=== PATIENT | male | born 1995 | race Two or more races ===

== ENCOUNTER 2025-05-06 10:34 | Inpatient (IN) | payer BC ==
[~2025-05-06] VITALS: Ht 193 cm; Wt 102.1 kg
[2025-05-06 10:42] VITALS: O2SAT 99
[2025-05-06] MEDS: KETOROLAC 30MG/ML VIAL IV ONE (11:08)
[2025-05-06] MEDS: OXYCODONE HCL 5MG TABLET PO ONE (12:50)
[2025-05-06 14:26] LABS: BASOPHILS % 0.1 % (0.0-2.0); EOSINOPHILS % 0.1 % (0.0-5.0); HEMATOCRIT. 41.5 % (42.0-52.0); HEMOGLOBIN. 13.6 g/dL (14.0-18.0); LYMPHOCYTES % 10.8 % (20.0-50.0); MEAN PLATELET VOLUME 8.8 fl (7.4-10.4); MONOCYTES % 4.2 % (2.0-8.0); NEUTROPHILS % 84.8 % (40.0-76.0); PLATELET 249 x1000/uL (130-400); RED BLOOD CELL COUNT 4.94 mill/uL (4.7-6.1); RED CELL DISTRIBUTION WIDTH 13.0 % (11.6-14.6)
[2025-05-06 14:49] LABS: CREATININE 1.1 mg/dL (0.6-1.3); UREA NITROGEN BLOOD 23 mg/dL (9-23)
[2025-05-06] MEDS ORDERED: ONDANSETRON HCL 4MG/2ML INJ IV PRN ×2 (15:30→20:15)
[2025-05-06] MEDS ORDERED: IPRATROPIUM/ALBUTEROL 0.5-3(2.5)MG/3ML NEB HHN PRN (15:30)
[2025-05-06] MEDS ORDERED: ACETAMINOPHEN 325MG TABLET PO PRN (15:30)
[2025-05-06] MEDS ORDERED: CLONIDINE 0.1MG TABLET PO PRN (15:30)
[2025-05-06 16:52] VITALS: BP 124/69; PULSE 61; RESP 19; TEMP 36.5848
[2025-05-06] MEDS ORDERED: FENTANYL CITRATE/PF 50MCG/ML 5ML VIAL ONE (18:25)
[2025-05-06] MEDS ORDERED: MIDAZOLAM HCL 2 MG/2 ML VIAL ONE (18:25)
[2025-05-06] MEDS ORDERED: PROPOFOL 200MG/20ML VIAL IV ONE (18:26)
[2025-05-06] MEDS ORDERED: CEFAZOLIN SODIUM 1000MG/VIAL ONE (18:42)
[2025-05-06] MEDS ORDERED: METOCLOPRAMIDE HCL 10MG/2ML VIAL ONE (18:44)
[2025-05-06] MEDS ORDERED: ONDANSETRON HCL 4MG/2ML INJ ONE (18:44)
[2025-05-06] MEDS ORDERED: EPHEDRINE SULFATE 50MG/ML VIAL ONE (19:00)
[2025-05-06] MEDS ORDERED: FENTANYL CITRATE/PF 50MCG/ML 2ML VIAL ONE ×2 (19:23→19:33)
[2025-05-06] MEDS ORDERED: CEFAZOLIN 1000MG PREMIX 50 ML IV SCH (20:00)
[2025-05-06] MEDS: HYDROMORPHONE HCL/PF 1MG/ML INJ IV PRN (20:45)
[2025-05-06] MEDS: ASPIRIN 325MG EC TABLET PO SCH (21:51)
[2025-05-06] MEDS: SENNOSIDES/DOCUSATE SOD 8.6/50MG TABLET PO SCH (21:51)
[2025-05-06] MEDS: CITALOPRAM HYDROBROMIDE 10MG TABLET PO SCH (23:13)
[2025-05-07] VITALS: BP 116/66; PULSE 67; RESP 17; TEMP 37.1; O2SAT 96
[2025-05-07] MEDS: CEFAZOLIN 1000MG PREMIX 50 ML IV SCH ×2 (01:53→18:17)
[2025-05-07 04:00] VITALS: BP 109/63; PULSE 52; RESP 17; TEMP 36.8; O2SAT 97
[2025-05-07] MEDS: ACETAMINOPHEN 325MG TABLET PO PRN (04:18)
[2025-05-07] MEDS: TRAMADOL 50MG TABLET PO PRN (05:10)
[2025-05-07 08:00] VITALS: BP 112/61; PULSE 59; RESP 18; TEMP 36.6; O2SAT 100
[2025-05-07] MEDS ORDERED: DEXTROSE 50% WATER 50ML SYRINGE IV PRN (08:00)
[2025-05-07 08:48] LABS: BASOPHILS % 0.1 % (0.0-2.0); EOSINOPHILS % 0.7 % (0.0-5.0); HEMATOCRIT. 36.6 % (42.0-52.0); HEMOGLOBIN. 12.1 g/dL (14.0-18.0); LYMPHOCYTES % 18.5 % (20.0-50.0); MEAN PLATELET VOLUME 8.8 fl (7.4-10.4); MONOCYTES % 11.9 % (2.0-8.0); NEUTROPHILS % 68.8 % (40.0-76.0); PLATELET 202 x1000/uL (130-400); RED BLOOD CELL COUNT 4.37 mill/uL (4.7-6.1); RED CELL DISTRIBUTION WIDTH 13.3 % (11.6-14.6)
[2025-05-07] MEDS ORDERED: PANTOPRAZOLE SODIUM 40 MG/VIAL IV SCH (09:00)
[2025-05-07 09:11] LABS: CREATININE 1.1 mg/dL (0.6-1.3); TRIGLYCERIDE 51 mg/dL (0-150); UREA NITROGEN BLOOD 13 mg/dL (9-23)
[2025-05-07 09:12] LABS: LDL CHOLESTEROL 60 mg/dL (5-100)
[2025-05-07 09:16] LABS: T4 FREE 1.35 ng/dL (0.89-1.76)
[2025-05-07 12:00] VITALS: BP 106/57; PULSE 80; RESP 17; TEMP 37.3; O2SAT 99
[2025-05-07] MEDS: MORPHINE SULFATE 2 MG/ML INJ (NOT FOR IM USE) IV PRN (12:20)
[2025-05-07] MEDS ORDERED: NALOXONE HCL 0.4MG/ML VIAL IV PRN (13:00)
[2025-05-07] MEDS ORDERED: IBUP-2030 MT (14:12)
[2025-05-07] MEDS ORDERED: FAMO20TA8 PO (14:12)
[2025-05-07] MEDS ORDERED: TOPUD PO (14:12)
[2025-05-07] MEDS ORDERED: ASPI-1497 MT (14:12)
[2025-05-07] MEDS ORDERED: TRAM50TA3 MT (15:32)
[2025-05-07 16:00] VITALS: BP 114/51; PULSE 86; RESP 18; TEMP 37.6; O2SAT 98
[2025-05-07] MEDS: HYDROCODONE/ACETAMINOPHEN 5/325MG TABLET PO PRN (16:15)
[2025-05-07 20:00] VITALS: BP 134/71; PULSE 94; RESP 20; TEMP 36.6; O2SAT 97
[2025-05-07] MEDS: FAMOTIDINE 20MG TABLET PO SCH (20:26)
[2025-05-08] VITALS: BP 124/65; PULSE 73; RESP 18; TEMP 36.2; O2SAT 98
[2025-05-08 08:00] VITALS: BP 108/62; PULSE 55; RESP 16; TEMP 36.7; O2SAT 98
[2025-05-08] MEDS: MAGNESIUM/ALUMINUM HYDROXIDE/SIMETHICONE 30ML UDC PO PRN (08:49)
[2025-05-08] MEDS: ACETAMINOPHEN 325MG TABLET PO PRN (09:03)
[2025-05-08 12:00] VITALS: BP 115/68; PULSE 74; RESP 16; TEMP 36.9; O2SAT 98
[2025-05-08 13:31] VITALS: BP 115/16; PULSE 74; RESP 16; TEMP 98.5
[2025-05-08 20:00] VITALS: BP 114/63; PULSE 75; RESP 18; TEMP 36.5; O2SAT 97
[2025-05-09] VITALS: BP 122/52; PULSE 72; TEMP 36.6; O2SAT 95
[2025-05-09 08:00] VITALS: BP 110/62; PULSE 65; RESP 16; TEMP 36.5; O2SAT 98
[2025-05-09] MEDS ORDERED: TOPUD PO (08:08)
[2025-05-09] MEDS ORDERED: FAMO20TA8 PO (08:08)
[2025-05-09] MEDS ORDERED: TRAM50TA3 MT (08:09)
[2025-05-09] MEDS ORDERED: ASPI-1497 MT (08:09)
[2025-05-09] MEDS ORDERED: IBUP-2030 MT (08:09)
[2025-05-09 11:51] VITALS: BP 112/63; PULSE 72; RESP 18
== END 2025-05-09 12:17 | disposition home or self-care (01) | DRG 494 ==
LOC: ER 10:52 → 7EST 15:14 → EDBEDREQ 15:20 → EDBEDREQTM 15:20 → ENRESERV 15:24
PROVIDERS: ADMIT Hospitalist; ATTEND Hospitalist
PROC: 0QSH34Z Reposition Left Tibia with Internal Fixation Device, Percutaneous Approach (ICD-10-PCS; principal; 2025-05-06)
PROC: 0QSK34Z Reposition Left Fibula with Internal Fixation Device, Percutaneous Approach (ICD-10-PCS; 2025-05-06)
DX: S82.392A Other fracture of lower end of left tibia, initial encounter for closed fracture (principal); S82.832A Other fracture of upper and lower end of left fibula, initial encounter for closed fracture; E78.5 Hyperlipidemia, unspecified; F32.A Depression, unspecified; D72.829 Elevated white blood cell count, unspecified; V29.99XA Rider (driver) (passenger) of other motorcycle injured in unspecified traffic accident, initial encounter; Y93.55 Activity, bike riding; Y92.89 Other specified places as the place of occurrence of the external cause; Y99.8 Other external cause status; Z79.899 Other long term (current) drug therapy
CPT/HCPCS: 36415; 73590; 73610; 76000; 80048; 80061; 84439; 84443; 85025; 93005; 96374; 97110; 97116; 97162; 97530; 97535; 99285; A4606; J0690; J1171; J1885; J2250; J2270; J2405; J2704; J2765; J3010; J3490; C1713; C1769